=== PATIENT | female | born 1970 | race Caucasian/White ===

== ENCOUNTER 2016-09-16 06:53 | Emergency (ER) | payer OTHER ==
[2016-09-16 07:13] VITALS: BP 151/95
[2016-09-16] MEDS ORDERED: MOTRIN PO ONE (09:52)
--- NOTE | 2016-09-16 10:18 | Emergency Department Report ---
Entered by CAROLINA RBOWN, acting as scribe for CIARA PALACIOS PA. HPI - General Chief Complaint: Dental/Oral Time Seen by Provider: 09/16/16 09:30 - HPI HPI: 46 y/o female with a PMHx of arthritis and HTN presents to the ED c/o a left lower toothache pain that began this. Rates pain a 10/10 in severity. Patient states pain worsens with. Denies SOB, headache, neck stiffness, fever, chills, and chest pain. Took Codeine 3 and Ibuprofen 800 mg with no relief. Patient drove herself to the ED. Denies having an customer service operator. Allergic to IV contrast. NKDA. ED Past Medical Hx - Past Medical History Previous Medical History?: Yes Hx Hypertension: Yes Hx Arthritis: Yes - Surgical History Past Surgical History?: Yes Additional Surgical History: Novasure - Family History Family history: no significant - Social History Smoking Status: Current Every Day Smoker Substance Use Type: Alcohol, Prescribed - Medications Home Medications: Home Medications Medication Instructions Recorded Confirmed Last Taken Type Clindamycin [Clindamycin CAP] 300 mg PO Q8H #30 cap 09/16/16 Unknown Rx HYDROcodone/APAP 7.5-325 [[place] 1 each PO Q6HR PRN #15 tablet 09/16/16 Unknown Rx 7.5/325] Ibuprofen [Motrin] 800 mg PO Q8HR PRN #21 tablet 09/16/16 Unknown Rx Losartan/Hydrochlorothiazide 1 tab PO DAILY 09/16/16 09/16/16 09/14/16 History [Losartan-Hctz 50-12.5 mg Tab] Meloxicam [Mobic] 7.5 mg PO QDAY 09/16/16 09/16/16 09/15/16 History ED Review of Systems ROS: Stated complaint: TOOTHACHE Other details as noted in HPI Comment: All other systems reviewed and negative Constitutional: no symptoms reported. denies: chills, fever ENT: dental pain (left side) Respiratory: no symptoms reported. denies: cough, shortness of breath Cardiovascular: denies: chest pain, palpitations Gastrointestinal: denies: nausea, vomiting Musculoskeletal: denies: other (neck stiffness) Skin: denies: rash Neurological: denies: headache, numbness Physical Exam - Physical Exam Vital Signs: Vital Signs 09/16/16 07:10 Temperature 98 F Pulse Rate 85 Respiratory 18 Rate Blood Pressure 151/95 O2 Sat by Pulse 97 Oximetry General: This is a 46-year-old morbidly obese female that is nontoxic in appearance. Physical Exam: Head: Normocephalic atraumatic Mouth: Moist, no pharyngeal exudate or erythema. Uvula is midline and oral airway is patent. Positive gingival enlargement .positive dental tenderness around tooth #17. no cellulitis or indurated areas seen. Dental caries. Tooth #17 fracture with no pulp exposure. No facial swelling. Ears: Bilateral TMs pearly andersen.bilateral EAC without any redness swelling or drainage Eyes: Bilateral pupils equal and reactive to light, bilateral EOM intact. Bilateral sclera and conjunctiva without injection. Normal accommodation Nose: Mucosa moist, no mucosa .maxillary and frontal sinus non-tender to palpate. Lungs:clear to auscultate bilaterally no rhonchi wheezes or rales. Normal work of breathing extremity; No CCE. +2 pulses. No neurovascular compromise Cardiovascular: S1-S2, regular rate rhythm. No murmurs. Skin: clean Dry and intact no rash no lesions Psych: Normal mood and behavior ED Course Vital Signs 09/16/16 07:10 Temperature 98 F Pulse Rate 85 Respiratory 18 Rate Blood Pressure 151/95 O2 Sat by Pulse 97 Oximetry - Reevaluation(s) Reevaluation #1: 09/16/16 10:03 Patient given Motrin 800 mg in emergency room for toothache. ED Medical Decision Making - Medical Decision Making ED course: I Discussed with the patient that she has gingival enlargement, multiple dental caries, fractured tooth and she will need to follow-up with a dentist as soon as possible to get deep clean in an filling. Patient with poor oral care with plaque formation between teeth. Patient says she does not have a dentist at present but she does have access to a dentist and she'll call tomorrow to schedule appointment. I will refer her to a couple dentist and she can call to see if they accept her insurance but does not she needs to call her insurance to see his dentist is called that accept her insurance. Patient given Motrin 800 mg in emergency room. Discharged home with prescription for [place], Motrin and clindamycin. Critical care attestation.: If time is entered above; I have spent that time in minutes in the direct care of this critically ill patient, excluding procedure time. ED Disposition Clinical Impression: Enlargement, gingival, Dental caries, Toothache Fracture, tooth Qualifiers: Encounter type: initial encounter Fracture type: closed Qualified Code(s): S02.5XXA - Fracture of tooth (traumatic), initial encounter for closed fracture Disposition: DISCHARGED TO HOME OR SELFCARE Is pt being admited?: No Does the pt Need Aspirin: No Condition: Stable Instructions: Dental Caries (ED), Toothache (ED), Gingivitis (ED) Additional Instructions: Please follow up with dentist is recommended. Call tomorrow to schedule an appointment. You have multiple dental caries and an enlarged gums, plaque buildup and fractured tooth that he needs immediate dental care. Take antibiotic as prescribed. [place] cause you to be drowsy. He is to not drive or operate heavy machinery while taking this medication Prescriptions: Clindamycin [Clindamycin CAP] 300 mg PO Q8H #30 cap HYDROcodone/APAP 7.5-325 [[place] 7.5/325] 1 each PO Q6HR PRN #15 tablet PRN Reason: Pain Ibuprofen [Motrin] 800 mg PO Q8HR PRN #21 tablet PRN Reason: Toothache Referrals: KASEY ARENAS MD [Primary Care Provider] - 2-3 Days [facility] [Outside] - 24 Hours Family [facility] [Other] - 24 Hours Forms: Work/School Release Form(ED) This documentation as recorded by the KEVIN stuart JASMINE,accurately reflects the service I personally performed and the decisions made by me,CIARA PALACIOS PA.
== END 2016-09-16 10:25 | disposition home or self-care (01) ==
LOC: ED 06:53
DX: S02.5XXA Fracture of tooth (traumatic), initial encounter for closed fracture (principal); K02.9 Dental caries, unspecified; K06.1 Gingival enlargement; I10 Essential (primary) hypertension; M19.90 Unspecified osteoarthritis, unspecified site; F17.200 Nicotine dependence, unspecified, uncomplicated; X58.XXXA Exposure to other specified factors, initial encounter; Y93.89 Activity, other specified; Y99.8 Other external cause status; Y92.89 Other specified places as the place of occurrence of the external cause
CPT/HCPCS: 99282